=== PATIENT | male | born 1980 | race Two or more races ===

== ENCOUNTER 2020-04-01 18:43 | Inpatient (IN) | payer OTHER ==
[~2020-04-01] VITALS: Ht 170.2 cm; Wt 104.3 kg
--- NOTE | 2020-04-01 19:05 | NUR ---
ED Nurse Note: PT BROUGHT IN TO ED VIA WHEELCHAIR ASSISTANCE C/O 06/05 CONSTANT ACHING PAIN ON LEFT MCWILLIAMS INJURY THAT HAPPENED AT AROUND 1400 TODAY DURING WORK. PT STATES BEING HIT BY AN UNK METAL OBJECT FALLING ON HIS LEFT MCWILLIAMS. LEFT MCWILLIAMS APPEARS WITH AN ABRASION WITH EDEMA AND PRESENTS WITH HEMATOMA. BLEEDING IS CONTROLLED AT THIS TIME. PT REPORTS LAST TDAP 3 YRS AGO. AAOX4, NONAMBULATORY, VSS, NAD. ERPA AT BEDSIDE.
[2020-04-01] MEDS ORDERED: Ketorolac 30mg Inj IM ONE (19:15)
[2020-04-01] MEDS ORDERED: Tylenol #3 tab (300mg/30mg) ORAL ONE (19:15)
--- NOTE | 2020-04-01 19:15 | NUR ---
ED Nurse Note: cleaned wound site with chlorhexadine solution.
--- NOTE | 2020-04-01 19:15 | NUR ---
ED Nurse Note: XR AT BEDSIDE
--- NOTE | 2020-04-01 19:20 | NUR ---
ED Nurse Note: PT GIVEN PAIN MEDICATION
[2020-04-01 19:25] VITALS: BP 136/72
--- NOTE | 2020-04-01 19:30 | NUR ---
ED Nurse Note: US AT BEDSIDE
--- NOTE | 2020-04-01 20:06 | Emergency Room Report ---
History of Present Illness General Chief Complaint: Lower Extremity Injury Source: Patient (Ximena Rojas) Present Illness HPI 39-year-old male with no significant past medical history here for left lower extremity after a metal pole hit his leg at work. 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 Patient entire left lower extremity is very tight. Patient has good circulation, blood flow is within normal limits. Rates the pain 10 out of 10 without radiation. Patient started to blister at the site. Denies chest pain, shortness of, headache and dizziness. Complains of numbness in the left lower extremity however the foot is not numb according to the patient. Has not taken medication for symptom relief. Minor abrasions noted left side. Is up-to-date with tetanus shot. Denies fever chills. (Ximena Rojas) Allergies: Coded Allergies: No Known Allergies (Unverified , 04/01/20) COVID-19 Screening Contact w/high risk pt: No Recent Travel to affected area: No Experienced COVID-19 symptoms?: No COVID-19 Testing performed RECEIVING TEAM MEMBER: No (Ximena Rojas) Patient History Past Medical History: see triage record Past Surgical History: none Pertinent Family History: none Immunizations: UTD Reviewed Nursing Documentation: PMH: Agreed; PSxH: Agreed (Ximena Rojas) Nursing Documentation-PMH Past Medical History: No Stated History (Ximena Rojas) Review of Systems All Other Systems: negative except mentioned in HPI (Ximena Rojas) Physical Exam Vital Signs Date Time Temp Pulse Resp B/P (MAP) Pulse Ox O2 Delivery O2 Flow Rate FiO2 04/01/20 19:01 97.9 98 17 145/104 (118) 95 Room Air Sp02 EP Interpretation: reviewed, normal General Appearance: no apparent distress, alert, GCS 15, non-toxic Head: normocephalic, atraumatic Eyes: bilateral eye normal inspection, bilateral eye PERRL ENT: hearing grossly normal, normal pharynx, no angioedema, normal voice Neck: full range of motion, supple/symm/no masses Respiratory: chest non-tender, lungs clear, normal breath sounds, no respiratory distress, speaking full sentences Cardiovascular #1: regular rate, rhythm, no edema, no JVD, no murmur Cardiovascular #2: 2+ dorsalis pedis (R), 2+ dorsalis pedis (L) Gastrointestinal: normal inspection Rectal: deferred Genitourinary: no CVA tenderness Musculoskeletal: back normal, no calf tenderness, swelling - Left tib-fib with tightness and obvious hematoma frontal tib-fib Neurologic: alert, motor strength/tone normal, oriented x3, sensory intact, responsive, speech normal Psychiatric: judgement/insight normal, memory normal, mood/affect normal, no suicidal/homicidal ideation Skin: abrasion - left tib fib Lymphatic: no adenopathy (Ximena Rojas) Medical Decision Making PA Attestation All diagnoses and treatment plans were reviewed and discussed with my supervising physician Dr. Webster (Ximena Rojas) PA Attestation I participated in the care of this patient along with REJI Sood and agree with treatment plan Briefly, this is a 39-year-old male who was injured by a metal pipe falling at a construction site. He sustained an abrasion over the left tibia with surrounding swelling. X-ray did not show fracture though his compartments were tense and blistering was beginning to appear. His tetanus was updated. Labs were obtained showing a normal CK normal potassium normal renal function. He has good distal perfusion with palpable PT and DP pulses and range of motion is intact though he has worsening pain and swelling. CTA of the leg was obtained showing a hematoma but no active extravasation and confirm no fracture. Patient is feeling better after receiving pain medication though believe he needs monitoring for possible early compartment syndrome and frequent rechecks. Keeping leg elevated. Will admit to panel physician, Dr. Terrell Vega. (Marshall Webster MD) Diagnostic Impression: Primary Impression: Injury of lower extremity Additional Impression: Hematoma ER Course 39-year-old male with no significant past medical history here for left lower extremity after a metal pole hit his leg at work. 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 Patient entire left lower extremity is very tight. Patient has good circulation, blood flow is within normal limits. Rates the pain 10 out of 10 without radiation. Patient started to blister at the site. Denies chest pain, shortness of, headache and dizziness. Complains of numbness in the left lower extremity however the foot is not numb according to the patient. Has not taken medication for symptom relief. Minor abrasions noted left side. Is up-to-date with tetanus shot. Denies fever chills. Ddx considered but are not limited to : Cellulitis, DVT, superficial infection, abscess, hematoma, Vital signs: are WNL, pt. is afebrile H&PE are most consistent with: Left lower extremity hematoma ORDERS: CBC, CMP, PT and PTT and INR, UA, CK, CTA left lower extremity, x-ray left tib-fib, venous duplex ultrasound left lower extremity ED INTERVENTIONS: Toradol, Tylenol Motrin, morphine, Zofran Patient was admitted with diagnosis of hematoma history of lower extremity to under supervision of : Eleanor pt stable at time of admission (Ximena Rojas) Laboratory Tests Test 04/01/20 21:25 White Blood Count 9.5 K/UL (4.8-10.8) Red Blood Count 5.18 M/UL (4.70-6.10) Hemoglobin 15.3 G/DL (14.2-18.0) Hematocrit 45.2 % (42.0-52.0) Mean Corpuscular Volume 87 FL (80-99) Mean Corpuscular Hemoglobin 29.4 PG (27.0-31.0) Mean Corpuscular Hemoglobin Concent 33.7 G/DL (32.0-36.0) Red Cell Distribution Width 12.5 % (11.6-14.8) Platelet Count 211 K/UL (150-450) Mean Platelet Volume 8.7 FL (6.5-10.1) Neutrophils (%) (Auto) 64.5 % (45.0-75.0) Lymphocytes (%) (Auto) 27.5 % (20.0-45.0) Monocytes (%) (Auto) 6.1 % (1.0-10.0) Eosinophils (%) (Auto) 0.8 % (0.0-3.0) Basophils (%) (Auto) 1.2 % (0.0-2.0) Prothrombin Time 11.6 SEC (9.30-11.50) H Prothrombin Time INR 1.1 (0.9-1.1) Activated Partial Thromboplast Time 32 SEC (23-33) Sodium Level 139 MMOL/L (136-145) Potassium Level 3.8 MMOL/L (3.5-5.1) Chloride Level 104 MMOL/L (98-107) Carbon Dioxide Level 26 MMOL/L (21-32) Anion Gap 10 mmol/L (5-15) Blood Urea Nitrogen 14 mg/dL (7-18) Creatinine 0.9 MG/DL (0.55-1.30) Estimated Glomerular Filtration Rate > 60 mL/min (>60) Glucose Level 107 MG/DL (74-106) H Calcium Level 8.4 MG/DL (8.5-10.1) L Total Bilirubin 0.5 MG/DL (0.2-1.0) Aspartate Amino Transferase (AST) 34 U/L (15-37) Alanine Aminotransferase (ALT) 169 U/L (12-78) H Alkaline Phosphatase 125 U/L (46-116) H Total Creatine Kinase 144 U/L (26-308) Total Protein 7.3 G/DL (6.4-8.2) Albumin 4.2 G/DL (3.4-5.0) Globulin 3.1 g/dL Albumin/Globulin Ratio 1.4 (1.0-2.7) (Marshall Webster MD) Other X-Ray Diagnostic Results Other X-Ray Diagnostic Results : X-Ray ordered: Left tib fib # of Views/Limited Vs Complete: 3 View Indication: Pain EP Interpretation: Yes PA Xray: Interpretation reviewed, by supervising MD, and agrees with findings. Interpretation: no dislocation, no fractures, other - tightness and hematoma Impression: Other - hematoma Electronically Signed by: Ximena Gomes PA-C (Ximena Rojas) CT/MRI/US Diagnostic Results CT/MRI/US Diagnostic Results #1: Imaging Test Ordered: Venous duplex ultrasound left lower extremity Impression No DVT CT/MRI/US Diagnostic Results #2: Imaging Test Ordered: CTA left lower extremity Impression FINDINGS: VASCULATURE: Patent popliteal artery and runoff arteries. The distal aspect of the runoff arteries are not visualized as the scan outran the bolus. No dissection. No active bleeding. LOWER EXTREMITY: Bones/joints: No fracture or malalignment. Soft tissues: Hematoma along the anteromedial holguin measuring approximately 8.8 x 3.3 x 0.0 cm. Overlying skin irregularity. No active extravasation. IMPRESSION: 1. Hematoma along the anteromedial holguin without active extravasation. 2. No fracture. (Ximena Rojas) CT/MRI/US Diagnostic Results : Impression Final Report EXAM: CT Angiography of the Left Lower Extremity With Intravenous Contrast CLINICAL HISTORY: PAIN TECHNIQUE: Axial computed tomographic angiography images of the left lower extremity with intravenous contrast. CTDI is 68.9 mGy and DLP is 186 mGy-cm. One or more of the following dose reduction techniques were used: automated exposure control, adjustment of the mA and/or kV according to patient size, use of iterative reconstruction technique. 3D and MIP reconstructed images were created and reviewed. COMPARISON: No relevant prior studies available. FINDINGS: VASCULATURE: Patent popliteal artery and runoff arteries. The distal aspect of the runoff arteries are not visualized as the scan outran the bolus. No dissection. No active bleeding. LOWER EXTREMITY: Bones/joints: No fracture or malalignment. Soft tissues: Hematoma along the anteromedial holguin measuring approximately 8.8 x 3.3 x 0.0 cm. Overlying skin irregularity. No active extravasation. IMPRESSION: 1. Hematoma along the anteromedial holguin without active extravasation. 2. No fracture. Radiologist: Tyrell Lewis MD Electronically Signed: 04/01/20 22:47 Study ready at 22:44 and initial results transmitted at 22:47 (Marshall Webster MD) Last Vital Signs Date Time Temp Pulse Resp B/P (MAP) Pulse Ox O2 Delivery O2 Flow Rate FiO2 04/01/20 19:01 97.9 98 17 145/104 (118) 95 Room Air (Ximena Rojas) Disposition: PLACE IN OBSERVATION Condition: Stable Referrals: NOT CHOSEN IPA/,REFERRING (PCP) Ximena Rojas Apr 01, 2020 20:06 Marshall Webster MD Apr 01, 2020 22:49
[2020-04-01] MEDS ORDERED: Omnipaque 350 100ml vial INJ PRN (20:30)
[2020-04-01 21:00] VITALS: BP 139/87
--- NOTE | 2020-04-01 21:30 | NUR ---
ED Nurse Note: blood collected and sent to lab
--- NOTE | 2020-04-01 21:33 | NUR ---
ED Nurse Note: localized blisters noted around the wound on the left holguin. erpa notified and aware.
[2020-04-01 21:38] LABS: BASOPHILS % (AUTO) 1.2 % (0.0-2.0); EOSINOPHILS % (AUTO) 0.8 % (0.0-3.0); HEMATOCRIT 45.2 % (42.0-52.0); HEMOGLOBIN 15.3 G/DL (14.2-18.0); LYMPHOCYTES % (AUTO) 27.5 % (20.0-45.0); MEAN CORPUSCULAR VOLUME 87 FL (80-99); MONOCYTES % (AUTO) 6.1 % (1.0-10.0); NEUTROPHILS % (AUTO) 64.5 % (45.0-75.0); PLATELET COUNT 211 K/UL (150-450); RED BLOOD COUNT 5.18 M/UL (4.70-6.10); RED CELL DISTRIBUTION WIDTH 12.5 % (11.6-14.8); WHITE BLOOD COUNT 9.5 K/UL (4.8-10.8)
--- NOTE | 2020-04-01 21:40 | NUR ---
ED Nurse Note: per ERPA, continue to monitor wound and blister until patient goes to cta.
[2020-04-01 21:44] LABS: ANION GAP 10 mmol/L (5-15); BLOOD UREA NITROGEN 14 mg/dL (7-18); CALCIUM 8.4 MG/DL (8.5-10.1); CARBON DIOXIDE 26 MMOL/L (21-32); CHLORIDE 104 MMOL/L (98-107); CREATININE 0.9 MG/DL (0.55-1.30); POTASSIUM 3.8 MMOL/L (3.5-5.1); SODIUM 139 MMOL/L (136-145)
[2020-04-01 21:48] LABS: INR 1.1 (0.9-1.1)
[2020-04-01 21:50] LABS: ALANINE AMINOTRANSFERASE 169 U/L (12-78); ALBUMIN 4.2 G/DL (3.4-5.0); ALBUMIN/GLOBULIN RATIO 1.4 (1.0-2.7); ALKALINE PHOSPHATASE 125 U/L (46-116); ASPARTATE AMINO TRANSFERASE 34 U/L (15-37); BILIRUBIN,TOTAL 0.5 MG/DL (0.2-1.0); CREATINE KINASE 144 U/L (26-308)
[2020-04-01] MEDS ORDERED: Morphine Sulfate 2mg/ml Inj(IV/IM USE ONLY) IVP ONE (22:00)
--- NOTE | 2020-04-01 22:06 | NUR ---
ED Nurse Note: pt went for cta. pt signed consent and verbalized understanding of cta procedure
--- NOTE | 2020-04-01 22:23 | NUR ---
ED Nurse Note: PT BACK FROM CT
[2020-04-01 22:36] VITALS: BP 136/69
--- NOTE | 2020-04-01 22:40 | NUR ---
ED Nurse Note: PT LEFT FEET APPEARS COLD TO TOUCH AND NOTED BY ERPA AND ERMD. WILL CONTINUE TO MONITOR PATIENT. VSS, NAD.
--- NOTE | 2020-04-01 22:47 | Diagnostic Imaging Report ---
EXAM: CT Angiography of the Left Lower Extremity With Intravenous Contrast CLINICAL HISTORY: PAIN TECHNIQUE: Axial computed tomographic angiography images of the left lower extremity with intravenous contrast. CTDI is 68.9 mGy and DLP is 186 mGy- cm. One or more of the following dose reduction techniques were used: automated exposure control, adjustment of the mA and/or kV according to patient size, use of iterative reconstruction technique. 3D and MIP reconstructed images were created and reviewed. COMPARISON: No relevant prior studies available. FINDINGS: VASCULATURE: Patent popliteal artery and runoff arteries. The distal aspect of the runoff arteries are not visualized as the scan outran the bolus. No dissection. No active bleeding. LOWER EXTREMITY: Bones/joints: No fracture or malalignment. Soft tissues: Hematoma along the anteromedial holguin measuring approximately 8.8 x 3.3 x 0.0 cm. Overlying skin irregularity. No active extravasation. IMPRESSION: 1. Hematoma along the anteromedial holguin without active extravasation. 2. No fracture.
--- NOTE | 2020-04-01 23:59 | NUR ---
ED Nurse Note: gave report to Wayne SCHWARTZ.
[2020-04-02] VITALS (7 sets, daily range): BP systolic 115–152; BP diastolic 73–99
[2020-04-02] MEDS ORDERED: Morphine Sulfate 2mg/ml Inj(IV/IM USE ONLY) IVP ONE
--- NOTE | 2020-04-02 00:13 | NUR ---
ED Nurse Note: CEFAZOLIN 2GM NOT AVAILABLE IN [facility]. PER DR SOUZA VERBAL ORDER, CEFAZOLIN 1GM IN 50ML OF NS TO BE GIVEN. OVERRIDE DONE FOR CEFAZOLIN 1GM.
[2020-04-02] MEDS ORDERED: ceFAZolin 2gm/50ml Premix 50 ML IVPB SCH (00:15)
--- NOTE | 2020-04-02 00:22 | NUR ---
ED Nurse Note: CALLED PIPELINE FOR ANCEF 1GM IV VERIFICATION.
[2020-04-02] MEDS ORDERED: D5W IV SCH (00:30)
[2020-04-02] MEDS ORDERED: CEFAZOLIN SOD IV SCH (00:30)
--- NOTE | 2020-04-02 00:30 | NUR ---
ED Nurse Note: ANCEF 1GM MANUAL BARCODE INITIATED SCANNER WAS NOT ABLE TO SCAN. ANCEF 1GM MIXED IN 50ML D5 SOLUTION.
[2020-04-02 00:37] LABS: APPEARANCE,URINE CLEAR; BILIRUBIN, URINE NEGATIVE (NEGATIVE); COLOR,URINE PALE YELLOW; GLUCOSE, URINE (UA) NEGATIVE (NEGATIVE); KETONES,URINE NEGATIVE (NEGATIVE); LEUKOCYTE ESTERASE ,URINE NEGATIVE (NEGATIVE); NITRITE,URINE NEGATIVE (NEGATIVE); PH,URINE 6 (4.5-8.0); PROTEIN,URINE NEGATIVE (NEGATIVE); UROBILINOGEN,URINE NORMAL MG/DL (0.0-1.0)
--- NOTE | 2020-04-02 00:50 | NUR ---
TRANSFER TO FLOOR: Patient transferred to [facility] via [facility] in stable condition as ordered, per dr. Tejada. Report given to Wayne SCHWARTZ. Belongings sent with patient.
--- NOTE | 2020-04-02 00:55 | NUR ---
CHARGE NURSE NOTE: Pt is transferred from ED in stable condition, vitas stable.Report received from Jaden Odell RN ED. Room air. Pt is awake, alert and oriented. Left holguin injury noted, left leg elevated. Pt has circulation, sensation and movement of left leg. Pedal pulses present. Hand-off report given to EFREN Yepez. EFREN Yepez to complete admission process.
--- NOTE | 2020-04-02 01:11 | History and Physical ---
History of Present Illness General Reason for Hospitalization: Lower Extremity Injury Present Illness HPI A 39yo M with no known medical history reports for blunt trama to tibia. It occurred on 04/01/2020 onsite of job around noon. When a piece of metal weghing 20lbs fell 20ft onto tibia. Only able to bear weight but unable to ambulate. Taken to ED were a CT shows no fx but large hematoma. His initial CBC shows a hgb 15.3g/dl. Patient is able to move foot, and a has distal pulse. Allergies: Coded Allergies: No Known Allergies (Unverified , 04/01/20) COVID-19 Screening Contact w/high risk pt: No Recent Travel to affected area: No Experienced COVID-19 symptoms?: No Patient History Healthcare decision maker Resuscitation status Advanced Directive on File Review of Systems Constitutional: Reports: no symptoms Eye: Reports: no symptoms ENT: Reports: no symptoms Respiratory: Reports: no symptoms Cardiovascular: Reports: no symptoms Gastrointestinal: Reports: no symptoms Genitourinary: Reports: no symptoms Musculoskeletal: Reports: joint swelling Skin: Reports: no symptoms Psychiatric: Reports: no symptoms Neurological: Reports: no symptoms Endocrine: Reports: no symptoms Physical Exam General Appearance: moderate distress Lines, tubes and drains: peripheral HEENT: normocephalic, atraumatic Neck: non-tender, normal alignment, supple Respiratory/Chest: chest wall non-tender, lungs clear Cardiovascular/Chest: regular rhythm, tachycardia Abdomen: normal bowel sounds Extremities: normal range of motion, other - LLE anterior surface shows abrasion. Edematous. Foot cold but similar to other foot. Pulse noted distally. Skin Exam: normal pigmentation Last 24 Hour Vital Signs Date Time Temp Pulse Resp B/P (MAP) Pulse Ox O2 Delivery O2 Flow Rate FiO2 04/01/20 22:36 97.8 04/01/20 22:36 98.2 68 18 136/69 99 Room Air 04/01/20 21:00 97.8 81 19 139/87 99 Room Air 04/01/20 19:51 97.8 04/01/20 19:50 97.8 04/01/20 19:25 98.1 72 18 136/72 98 Room Air 04/01/20 19:01 97.9 98 17 145/104 (118) 95 Room Air Intake and Output 04/01/20 04/02/20 19:00 07:00 Intake Total 100 ml Balance 100 ml Intake Oral 100 ml Laboratory Tests Test 04/01/20 21:25 04/01/20 23:30 White Blood Count 9.5 K/UL (4.8-10.8) Red Blood Count 5.18 M/UL (4.70-6.10) Hemoglobin 15.3 G/DL (14.2-18.0) Hematocrit 45.2 % (42.0-52.0) Mean Corpuscular Volume 87 FL (80-99) Mean Corpuscular Hemoglobin 29.4 PG (27.0-31.0) Mean Corpuscular Hemoglobin Concent 33.7 G/DL (32.0-36.0) Red Cell Distribution Width 12.5 % (11.6-14.8) Platelet Count 211 K/UL (150-450) Mean Platelet Volume 8.7 FL (6.5-10.1) Neutrophils (%) (Auto) 64.5 % (45.0-75.0) Lymphocytes (%) (Auto) 27.5 % (20.0-45.0) Monocytes (%) (Auto) 6.1 % (1.0-10.0) Eosinophils (%) (Auto) 0.8 % (0.0-3.0) Basophils (%) (Auto) 1.2 % (0.0-2.0) Prothrombin Time 11.6 SEC (9.30-11.50) H Prothromb Time International Ratio 1.1 (0.9-1.1) Activated Partial Thromboplast Time 32 SEC (23-33) Sodium Level 139 MMOL/L (136-145) Potassium Level 3.8 MMOL/L (3.5-5.1) Chloride Level 104 MMOL/L (98-107) Carbon Dioxide Level 26 MMOL/L (21-32) Anion Gap 10 mmol/L (5-15) Blood Urea Nitrogen 14 mg/dL (7-18) Creatinine 0.9 MG/DL (0.55-1.30) Estimat Glomerular Filtration Rate > 60 mL/min (>60) Glucose Level 107 MG/DL (74-106) H Calcium Level 8.4 MG/DL (8.5-10.1) L Total Bilirubin 0.5 MG/DL (0.2-1.0) Aspartate Amino Transf (AST/SGOT) 34 U/L (15-37) Alanine Aminotransferase (ALT/SGPT) 169 U/L (12-78) H Alkaline Phosphatase 125 U/L (46-116) H Total Creatine Kinase 144 U/L (26-308) Total Protein 7.3 G/DL (6.4-8.2) Albumin 4.2 G/DL (3.4-5.0) Globulin 3.1 g/dL Albumin/Globulin Ratio 1.4 (1.0-2.7) Urine Color Pale yellow Urine Appearance Clear Urine pH 6 (4.5-8.0) Urine Specific [place] 1.015 (1.005-1.035) Urine Protein Negative (NEGATIVE) Urine Glucose (UA) Negative (NEGATIVE) Urine Ketones Negative (NEGATIVE) Urine Blood Negative (NEGATIVE) Urine Nitrite Negative (NEGATIVE) Urine Bilirubin Negative (NEGATIVE) Urine Urobilinogen Normal MG/DL (0.0-1.0) Urine Leukocyte Esterase Negative (NEGATIVE) Height (Feet): 6 Height (Inches): 5.00 Weight (Pounds): 230 Medications Current Medications Medications (Trade) Dose Ordered Sig/Carmen Route PRN Reason Start Time Stop Time Status Last Admin Dose Admin Cefazolin Sodium 50 ml @ 100 mls/hr Q8HR IVPB 04/02/20 00:15 04/09/20 00:14 Cefazolin Sodium 1000 mg/Dextrose 55 ml @ 110 mls/hr ONCE IV 04/02/20 00:30 04/02/20 02:00 04/02/20 00:32 Iohexol (Omnipaque 350 100ml) 100 ml NOW PRN INJ Radiology Procedure 04/01/20 20:30 04/03/20 20:16 Assessment/Plan Problem List: (1) Hematoma Assessment & Plan: ORDERS Consult: Surgery: Dr. Jerome Hold anticoagulation Hydromorphone 1/-1.5mg q6hrs prn prn Neurovascular monitoring of LLE foot ICD Codes: T14.8XXA - Other injury of unspecified body region, initial encounter SNOMED: 562589265 (2) Injury of lower extremity ICD Codes: S89.90XA - Unspecified injury of unspecified lower leg, initial encounter SNOMED: 320820049 Pavel Henning D.O. Apr 02, 2020 01:11
--- NOTE | 2020-04-02 01:40 | NUR ---
NURSES NOTES: Pt received from ER at 0045. Pt in bed, A/OX4, pain 5/10 in lower left extremity. No outward s/s of distress noted. Breathing is even and unlabored on RA. Left extremity is elevated. Orders to clean left holguin with NS, and cover with 4x4 gauze. IV R hand, 20 gauge, intact. Hep locked. Head to toe assessment completed. New orders processed. All due meds will be given. Bed at lowest level. Call light within reach. Pt will continue to be monitored.
[2020-04-02] MEDS ORDERED: HYDROmorphone 1mg/ml Carpuject IVP PRN ×2 (01:45)
--- NOTE | 2020-04-02 07:30 | NUR ---
NURSE NOTES: Received report from La RN, rounds made, pt awake , a/o4, breaths regular unlabored on RA c/o pain 3/10 Left lower leg at rest, will provide medication as ordered. dressing on Left holguin clean intact , patient able to wiggle toes, left holguin warm to touch. RT hand 20G locked , bed in low locked position call light with in reach , will continue to monitor
--- NOTE | 2020-04-02 07:46 | NUR ---
HAND OFF: Report given to EFREN Gordon. Pt stable.
--- NOTE | 2020-04-02 09:54 | Consultation ---
History of Present Illness General Date patient seen: Apr 02, 2020 Reason for Hospitalization: Lower Extremity Injury Present Illness HPI 39-year-old male with no significant past medical history here for left lower extremity after a metal pole hit his leg at work. 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 Obvious hematoma noted. Patient entire left lower extremity is very tight. Patient has good circulation, blood flow is within normal limits. Rates the pain 10 out of 10 without radiation. Patient started to blister at the site. Denies chest pain, shortness of, headache and dizziness. Complains of numbness in the left lower extremity however the foot is not numb according to the patient. Has not taken medication for symptom relief. Minor abrasions noted left side. Is up-to-date with tetanus shot. Denies fever chills. CT identified hematoma. Physical exam with tender left lower extremity and larger wound. Surgery called to evaluate and assist with care patient admitted patient evaluated chart reviewed Allergies: Coded Allergies: No Known Allergies (Unverified , 04/01/20) COVID-19 Screening Contact w/high risk pt: No Recent Travel to affected area: No Experienced COVID-19 symptoms?: No Patient History History Provided By: Patient, Medical Record, PMD Healthcare decision maker Resuscitation status Advanced Directive on File Past Medical/Surgical History Past Medical/Surgical History: (1) Hematoma (2) Injury of lower extremity Review of Systems Review of Symptoms General ROS: no weight loss or fever Psychological ROS: no depression or mood changes, no memory loss Ophthalmic ROS: no visual changes or eye irritation ENT ROS: no nasal congestion, hearing loss, dizziness Allergy and Immunology ROS: no allergic symptoms or urticaria Hematological and Lymphatic ROS: no swollen glands, unusual bleeding or bruising Endocrine ROS: no polyuria, polydipsia, weight changes, temperature intolerance Respiratory ROS: no cough, shortness of breath, or wheezing Cardiovascular ROS: no chest pain or dyspnea on exertion Gastrointestinal ROS: denies abdominal pain, bright red blood in stool. Musculoskeletal ROS: left leg pain Neurological ROS: no TIA or stroke symptoms Dermatological ROS: no new or changing skin lesions, rashes or pruritis Physical Exam Physical Exam General appearance: alert, cooperative, no distress, appears stated age Head: Normocephalic, without obvious abnormality, atraumatic Eyes: conjunctivae/corneas clear. PERRL, EOM's intact. Fundi benign Throat: Lips, mucosa, and tongue normal. Teeth and gums normal Neck: supple, symmetrical, trachea midline, no adenopathy, thyroid: not enlarged, symmetric, no tenderness/mass/nodules, no carotid bruit and no JVD Lungs: clear to auscultation bilaterally Heart: regular rate and rhythm, S1, S2 normal, no murmur, click, rub or gallop Abdomen: soft, non-tender. Bowel sounds normal. No masses, no organomegaly Extremities: extremities left leg pain, edema from leg to ankle. pulses wnl b/ l. tender on wound Pulses: 2+ and symmetric Skin: Skin color, texture, turgor normal. No rashes or lesions Neurologic: Grossly normal Last 24 Hour Vital Signs Date Time Temp Pulse Resp B/P (MAP) Pulse Ox O2 Delivery O2 Flow Rate FiO2 04/02/20 04:00 98.0 76 18 115/78 (90) 95 04/02/20 02:19 Room Air 04/02/20 00:50 97.8 66 18 137/73 99 Room Air 04/02/20 00:45 97.7 87 17 152/95 (114) 97 04/02/20 00:35 97.8 04/02/20 00:30 98.1 66 18 137/73 99 Room Air 04/01/20 22:36 97.8 04/01/20 22:36 98.2 68 18 136/69 99 Room Air 04/01/20 21:00 97.8 81 19 139/87 99 Room Air 04/01/20 19:51 97.8 04/01/20 19:50 97.8 04/01/20 19:25 98.1 72 18 136/72 98 Room Air 04/01/20 19:01 97.9 98 17 145/104 (118) 95 Room Air Intake and Output 04/01/20 04/02/20 19:00 07:00 Intake Total 600 ml Output Total 350 ml Balance 250 ml Intake Oral 600 ml Output Urine Total 350 ml # Voids 1 Laboratory Tests Test 04/01/20 21:25 04/01/20 23:30 White Blood Count 9.5 K/UL (4.8-10.8) Red Blood Count 5.18 M/UL (4.70-6.10) Hemoglobin 15.3 G/DL (14.2-18.0) Hematocrit 45.2 % (42.0-52.0) Mean Corpuscular Volume 87 FL (80-99) Mean Corpuscular Hemoglobin 29.4 PG (27.0-31.0) Mean Corpuscular Hemoglobin Concent 33.7 G/DL (32.0-36.0) Red Cell Distribution Width 12.5 % (11.6-14.8) Platelet Count 211 K/UL (150-450) Mean Platelet Volume 8.7 FL (6.5-10.1) Neutrophils (%) (Auto) 64.5 % (45.0-75.0) Lymphocytes (%) (Auto) 27.5 % (20.0-45.0) Monocytes (%) (Auto) 6.1 % (1.0-10.0) Eosinophils (%) (Auto) 0.8 % (0.0-3.0) Basophils (%) (Auto) 1.2 % (0.0-2.0) Prothrombin Time 11.6 SEC (9.30-11.50) H Prothromb Time International Ratio 1.1 (0.9-1.1) Activated Partial Thromboplast Time 32 SEC (23-33) Sodium Level 139 MMOL/L (136-145) Potassium Level 3.8 MMOL/L (3.5-5.1) Chloride Level 104 MMOL/L (98-107) Carbon Dioxide Level 26 MMOL/L (21-32) Anion Gap 10 mmol/L (5-15) Blood Urea Nitrogen 14 mg/dL (7-18) Creatinine 0.9 MG/DL (0.55-1.30) Estimat Glomerular Filtration Rate > 60 mL/min (>60) Glucose Level 107 MG/DL (74-106) H Calcium Level 8.4 MG/DL (8.5-10.1) L Total Bilirubin 0.5 MG/DL (0.2-1.0) Aspartate Amino Transf (AST/SGOT) 34 U/L (15-37) Alanine Aminotransferase (ALT/SGPT) 169 U/L (12-78) H Alkaline Phosphatase 125 U/L (46-116) H Total Creatine Kinase 144 U/L (26-308) Total Protein 7.3 G/DL (6.4-8.2) Albumin 4.2 G/DL (3.4-5.0) Globulin 3.1 g/dL Albumin/Globulin Ratio 1.4 (1.0-2.7) Urine Color Pale yellow Urine Appearance Clear Urine pH 6 (4.5-8.0) Urine Specific [place] 1.015 (1.005-1.035) Urine Protein Negative (NEGATIVE) Urine Glucose (UA) Negative (NEGATIVE) Urine Ketones Negative (NEGATIVE) Urine Blood Negative (NEGATIVE) Urine Nitrite Negative (NEGATIVE) Urine Bilirubin Negative (NEGATIVE) Urine Urobilinogen Normal MG/DL (0.0-1.0) Urine Leukocyte Esterase Negative (NEGATIVE) Height (Feet): 5 Height (Inches): 7.00 Weight (Pounds): 230 Medications Current Medications Medications (Trade) Dose Ordered Sig/Carmen Route PRN Reason Start Time Stop Time Status Last Admin Dose Admin Acetaminophen (Tylenol) 650 mg Q4H PRN ORAL Mild pain (1-3) 04/02/20 01:45 05/02/20 01:44 Acetaminophen (Tylenol) 650 mg Q4H PRN ORAL Temp >100.5 04/02/20 01:45 05/02/20 01:44 Hydromorphone HCl (Dilaudid) 1 mg Q4H PRN IVP Moderate Pain (4-6) 04/02/20 01:45 04/09/20 01:44 04/02/20 04:32 Hydromorphone HCl (Dilaudid) 1.5 mg Q4H PRN IVP Severe pain (7-10) 04/02/20 01:45 04/09/20 01:44 04/02/20 08:57 Iohexol (Omnipaque 350 100ml) 100 ml NOW PRN INJ Radiology Procedure 04/01/20 20:30 04/03/20 20:16 Ondansetron HCl (Zofran) 4 mg Q6H PRN IVP Nausea & Vomiting 04/02/20 01:45 05/02/20 01:44 Assessment/Plan Problem List: (1) Hematoma Assessment & Plan: Patent popliteal artery and runoff arteries. The distal aspect of the runoff arteries are not visualized as the scan outran the bolus. No dissection. No active bleeding. LOWER EXTREMITY: Bones/joints: No fracture or malalignment. Soft tissues: Hematoma along the anteromedial holguin measuring approximately 8.8 x 3.3 x 0.0 cm. Overlying skin irregularity. No active extravasation. IMPRESSION: 1. Hematoma along the anteromedial holguin without active extravasation. 2. No fracture. ICD Codes: T14.8XXA - Other injury of unspecified body region, initial encounter SNOMED: 485957768 (2) Injury of lower extremity Assessment & Plan: 39-year-old male with work injury to the left lower extremity pole hit to midshaft tibia. Patient is developed a hematoma large bruise and edema of the left lower extremity. He is got good pulses good range of motion but does have edema and discomfort. States mild pain with ambulation. Labs noted CT reviewed. There are concerns for potential compartment syndrome but the compartments seem fairly soft though he does have edema of the leg. Injury likely etiology of edema hematoma not large not drainable. No active bleeding. Does have pain and discomfort. Recommend pain control diet as tolerated left lower extremity elevated PT OT for evaluation of gait mobility to ensure safe. Upon approval will plan for discharge. Recommend staying in the hospital currently until able to ambulate and edema begins to subside. Does need pain control given injury. Fortunately no fracture. Thank you will follow with recommendations ICD Codes: S89.90XA - Unspecified injury of unspecified lower leg, initial encounter SNOMED: 106899057 Juni Schneider Apr 02, 2020 09:54
--- NOTE | 2020-04-02 10:19 | NUR ---
CASE MANAGEMENT: INITIAL REVIEW 39 YR OLD MALE FROM HOME CC: LOWER EXTREMITY INJURY SI:INJURY OF LOWER EXTREMITY 97.8 98 17 145/104 96% ON RA BG 107 CA+8.4 ALKP 169 TCK 125 PT 11.6 IS:TYLENOL #3 PO X1 TORADOL IM X1 IV MORPHINE SULFATE X1 IV ZOFRAN X1 CTA L Lower Extrem wo/w Cont-Hematoma along the anteromedial holguin without active extravasation. No fracture. \: [facility]E [facility]G UN[facility] DCP: HOME WHEN STABLE PLAN: VENOUS DUPLEX-PENDING CASE MANAGEMENT: REVIEW 04/02/20 SI:INJURY OF LOWER EXTREMITY 98.3 79 19 137/99 98% ON RA IS:IV DILAUDID Q4HR/PRN \: 3E MED SURG UNIT DCP: HOME WHEN STABLE PLAN: CONTROL PAIN ABLE TO BEAR WEIGHT BUT NOT ABLE TO AMBULATE
--- NOTE | 2020-04-02 12:40 | General Progress Note ---
Assessment/Plan Problem List: (1) Injury of lower extremity ICD Codes: S89.90XA - Unspecified injury of unspecified lower leg, initial encounter SNOMED: 952591230 (2) Hematoma ICD Codes: T14.8XXA - Other injury of unspecified body region, initial encounter SNOMED: 440320062 Assessment/Plan: #Left lower extremity injury #Hematoma with edema -Surgery evaluated -No compartment syndrome at this time -Pain controlled -PT evaluation -Will monitor hematoma and edema overnight. I spent 30 min on this pateint with 15 min face to face. Discussed with surgery attending. Discussed plan with RN Subjective Constitutional: Reports: no symptoms HEENT: Reports: no symptoms Cardiovascular: Reports: no symptoms Respiratory: Reports: no symptoms Gastrointestinal/Abdominal: Reports: no symptoms Genitourinary: Reports: no symptoms Neurologic/Psychiatric: Reports: no symptoms Endocrine: Reports: no symptoms Hematologic/Lymphatic: Reports: no symptoms Allergies: Coded Allergies: No Known Allergies (Unverified , 04/01/20) All Systems: reviewed and negative except above Subjective Has left leg pain but it is improving with medications Objective Last 24 Hour Vital Signs Date Time Temp Pulse Resp B/P (MAP) Pulse Ox O2 Delivery O2 Flow Rate FiO2 04/02/20 12:00 98.5 83 19 135/86 (102) 98 04/02/20 09:00 Room Air 04/02/20 08:00 98.3 79 19 137/99 (112) 98 04/02/20 04:00 98.0 76 18 115/78 (90) 95 04/02/20 02:19 Room Air 04/02/20 00:50 97.8 66 18 137/73 99 Room Air 04/02/20 00:45 97.7 87 17 152/95 (114) 97 04/02/20 00:35 97.8 04/02/20 00:30 98.1 66 18 137/73 99 Room Air 04/01/20 22:36 97.8 04/01/20 22:36 98.2 68 18 136/69 99 Room Air 04/01/20 21:00 97.8 81 19 139/87 99 Room Air 04/01/20 19:51 97.8 04/01/20 19:50 97.8 04/01/20 19:25 98.1 72 18 136/72 98 Room Air 04/01/20 19:01 97.9 98 17 145/104 (118) 95 Room Air Intake and Output 04/01/20 04/02/20 19:00 07:00 Intake Total 600 ml Output Total 350 ml Balance 250 ml Intake Oral 600 ml Output Urine Total 350 ml # Voids 1 Laboratory Tests 04/01/20 21:25: White Blood Count 9.5, Red Blood Count 5.18, Hemoglobin 15.3, Hematocrit 45.2, Mean Corpuscular Volume 87, Mean Corpuscular Hemoglobin 29.4, Mean Corpuscular Hemoglobin Concent 33.7, Red Cell Distribution Width 12.5, Platelet Count 211, Mean Platelet Volume 8.7, Neutrophils (%) (Auto) 64.5, Lymphocytes (%) (Auto) 27.5, Monocytes (%) (Auto) 6.1, Eosinophils (%) (Auto) 0.8, Basophils (%) (Auto ) 1.2, Prothrombin Time 11.6H, Prothromb Time International Ratio 1.1, Activated Partial Thromboplast Time 32, Sodium Level 139, Potassium Level 3.8, Chloride Level 104, Carbon Dioxide Level 26, Anion Gap 10, Blood Urea Nitrogen 14, Creatinine 0.9, Estimat Glomerular Filtration Rate > 60, Glucose Level 107H , Calcium Level 8.4L, Total Bilirubin 0.5, Aspartate Amino Transf (AST/SGOT) 34 , Alanine Aminotransferase (ALT/SGPT) 169H, Alkaline Phosphatase 125H, Total Creatine Kinase 144, Total Protein 7.3, Albumin 4.2, Globulin 3.1, Albumin/ Globulin Ratio 1.4 04/01/20 23:30: Urine Color Pale yellow, Urine Appearance Clear, Urine pH 6, Urine Specific [place] 1.015, Urine Protein Negative, Urine Glucose (UA) Negative, Urine Ketones Negative, Urine Blood Negative, Urine Nitrite Negative, Urine Bilirubin Negative, Urine Urobilinogen Normal, Urine Leukocyte Esterase Negative Height (Feet): 5 Height (Inches): 7.00 Weight (Pounds): 230 General Appearance: no apparent distress, alert EENT: PERRL/EOMI Neck: normal alignment, supple Cardiovascular: normal peripheral pulses, normal rate, regular rhythm, no gallop/murmur, no JVD Respiratory/Chest: lungs clear, normal breath sounds, no respiratory distress, no accessory muscle use Abdomen: normal bowel sounds, non tender, soft Extremities: normal range of motion, no calf tenderness - large hematoma on left holguin, normal capillary refill Edema: no edema noted Leg (L) Edema: non-pitting Neurologic: mat machine tender II-XII grossly normal, no motor/sensory deficits, alert, oriented x 3, responsive, normal mood/affect Skin: normal pigmentation, warm/dry Narayan Candelaria M.D. Apr 02, 2020 12:40
[2020-04-02] MEDS ORDERED: HYDROcodone/Acetamin 5/325 tab ORAL PRN (12:45)
--- NOTE | 2020-04-02 14:24 | NUR ---
*-* NO INSURANCE INFORMATION IN THE BAR UNABLE TO SEND CLINICALS OR REVIEWS *-*
--- NOTE | 2020-04-02 14:31 | Diagnostic Imaging Report ---
Indication: Trauma, pain Technique: 2 views of the left tibia and fibula Comparison: none Findings: No acute fractures. No dislocations. The joint spaces are preserved. No radiopaque foreign body Impression: Negative
--- NOTE | 2020-04-02 14:34 | Diagnostic Imaging Report ---
Indication: Legs pain, blunt trauma to the tibia, hematoma on recent CT scan Technique: Grayscale and duplex images of the left lower extremity veins Comparison: None Findings: Bilaterally, grayscale and duplex images demonstrate no evidence of intraluminal thrombus. Normal phasic Doppler waveforms, demonstrating normal augmentation response and no evidence of valvular insufficiency. Greater saphenous vein(s) and tibial veins are patent. Normal compressibility. Note that the anterior tibial vein is not visualized, may be extrinsically compressed by the anterior soft tissue contusion demonstrated on recent CT scan Impression: Negative for evidence of lower extremity deep venous thrombosis on the left
--- NOTE | 2020-04-02 19:58 | NUR ---
HAND-OFF: Report given to Shamika SCHWARTZ.
--- NOTE | 2020-04-02 20:15 | NUR ---
NURSES NOTE: Received pt in bed, A/OX4, states he has pain 7/10 in L holguin. PRN pain meds will be given according to eMAR. No outward s/s of distress noted. Breathing pattern is even and unlabored on RA. Pt capable of wiggling L and R foot toes, aware of tactile stimulus to bottom and top of L foot, L leg is cool to touch. Pedal pulses present- bilateral. Evident swelling from L foot to Lower thigh. Pt will continue to be monitored for circulation abilities. Bed at lowest level, call light within reach.
[2020-04-02] MEDS: HYDROcodone/Acetamin 10/325 tab ORAL PRN (20:31)
[2020-04-03] VITALS: BP 105/68
[2020-04-03 04:00] VITALS: BP 110/60
[2020-04-03] MEDS: HYDROcodone/Acetamin 10/325 tab ORAL PRN (06:07)
--- NOTE | 2020-04-03 07:48 | NUR ---
HAND OFF: Report given to EFREN Bolaños. Pt in stable condition.
[2020-04-03 08:00] VITALS: BP 133/86
[2020-04-03 09:45] LABS: BASOPHILS % (AUTO) 0.9 % (0.0-2.0); EOSINOPHILS % (AUTO) 1.4 % (0.0-3.0); HEMATOCRIT 41.9 % (42.0-52.0); HEMOGLOBIN 14.2 G/DL (14.2-18.0); LYMPHOCYTES % (AUTO) 30.6 % (20.0-45.0); MEAN CORPUSCULAR VOLUME 88 FL (80-99); MONOCYTES % (AUTO) 7.9 % (1.0-10.0); NEUTROPHILS % (AUTO) 59.2 % (45.0-75.0); PLATELET COUNT 173 K/UL (150-450); RED BLOOD COUNT 4.75 M/UL (4.70-6.10); RED CELL DISTRIBUTION WIDTH 11.8 % (11.6-14.8); WHITE BLOOD COUNT 5.3 K/UL (4.8-10.8)
[2020-04-03 09:51] LABS: ANION GAP 11 mmol/L (5-15); BLOOD UREA NITROGEN 15 mg/dL (7-18); CALCIUM 8.6 MG/DL (8.5-10.1); CARBON DIOXIDE 26 MMOL/L (21-32); CHLORIDE 105 MMOL/L (98-107); CREATININE 0.9 MG/DL (0.55-1.30); POTASSIUM 3.8 MMOL/L (3.5-5.1); SODIUM 142 MMOL/L (136-145)
[2020-04-03 12:00] VITALS: BP 125/76
[2020-04-03] MEDS ORDERED: HYDROCODON-ACE1 EA15 ORAL (12:58)
--- NOTE | 2020-04-03 13:00 | Discharge Instructions ---
Discharge Instructions Discharge Instructions Diet: 2 GM sodium (low sodium) Resume Normal Activity?: No Activity: light activity, other For Surgical Patients Dressing Care: keep dry and clean Elevate: left leg with pillow May shower: Yes Contact your physician for: bleeding, pain, tenderness, redness, swelling For Congestive Heart Failure Reminder Report to your physician any weight gain of 5 pounds or more in one week. Narayan Candelaria M.D. Apr 03, 2020 13:00
--- NOTE | 2020-04-03 14:05 | NUR ---
P.T Note: P.T evaluation completed and tx initiated. Please refer to P.T evaluation for current functional status.
--- NOTE | 2020-04-03 14:20 | Surgery Progress Note ---
Surgery Progress Note Subjective Symptoms: improved, tolerating diet, voiding well, pain decreased Objective Last 24 Hour Vital Signs Date Time Temp Pulse Resp B/P (MAP) Pulse Ox O2 Delivery O2 Flow Rate FiO2 04/03/20 12:00 98.3 72 21 125/76 (92) 97 04/03/20 09:00 Room Air 04/03/20 08:00 98.1 75 20 133/86 (102) 97 04/03/20 04:00 98.9 102 17 110/60 (77) 96 04/03/20 00:00 97.8 74 17 105/68 (80) 96 04/02/20 21:00 Room Air 04/02/20 20:00 97.9 71 18 126/80 (95) 97 04/02/20 16:00 99.0 78 19 132/79 (96) 99 I&O Intake and Output 04/02/20 04/03/20 19:00 07:00 Intake Total 1600 ml 480 ml Balance 1600 ml 480 ml Intake Oral 1600 ml 480 ml # Voids 4 1 Dressing: dry Wound: clean Cardiovascular: RSR Respiratory: clear Abdomen: soft, non-tender, present bowel sounds Extremities: edema - improved, tenderness - improved, no cyanosis, pulses Laboratory Tests Test 04/03/20 09:15 White Blood Count 5.3 K/UL (4.8-10.8) Red Blood Count 4.75 M/UL (4.70-6.10) Hemoglobin 14.2 G/DL (14.2-18.0) Hematocrit 41.9 % (42.0-52.0) L Mean Corpuscular Volume 88 FL (80-99) Mean Corpuscular Hemoglobin 29.9 PG (27.0-31.0) Mean Corpuscular Hemoglobin Concent 33.9 G/DL (32.0-36.0) Red Cell Distribution Width 11.8 % (11.6-14.8) Platelet Count 173 K/UL (150-450) Mean Platelet Volume 8.2 FL (6.5-10.1) Neutrophils (%) (Auto) 59.2 % (45.0-75.0) Lymphocytes (%) (Auto) 30.6 % (20.0-45.0) Monocytes (%) (Auto) 7.9 % (1.0-10.0) Eosinophils (%) (Auto) 1.4 % (0.0-3.0) Basophils (%) (Auto) 0.9 % (0.0-2.0) Sodium Level 142 MMOL/L (136-145) Potassium Level 3.8 MMOL/L (3.5-5.1) Chloride Level 105 MMOL/L (98-107) Carbon Dioxide Level 26 MMOL/L (21-32) Anion Gap 11 mmol/L (5-15) Blood Urea Nitrogen 15 mg/dL (7-18) Creatinine 0.9 MG/DL (0.55-1.30) Estimat Glomerular Filtration Rate > 60 mL/min (>60) Glucose Level 119 MG/DL (74-106) H Calcium Level 8.6 MG/DL (8.5-10.1) Plan Problems: (1) Hematoma Assessment & Plan: Patent popliteal artery and runoff arteries. The distal aspect of the runoff arteries are not visualized as the scan outran the bolus. No dissection. No active bleeding. LOWER EXTREMITY: Bones/joints: No fracture or malalignment. Soft tissues: Hematoma along the anteromedial holguin measuring approximately 8.8 x 3.3 x 0.0 cm. Overlying skin irregularity. No active extravasation. IMPRESSION: 1. Hematoma along the anteromedial holguin without active extravasation. 2. No fracture. (2) Injury of lower extremity Assessment & Plan: 39-year-old male with work injury to the left lower extremity pole hit to midshaft tibia. Patient is developed a hematoma large bruise and edema of the left lower extremity. He is got good pulses good range of motion but does have edema and discomfort. States mild pain with ambulation. Labs noted CT reviewed. There are concerns for potential compartment syndrome but the compartments seem fairly soft though he does have edema of the leg. Injury likely etiology of edema hematoma not large not drainable. No active bleeding. Does have pain and discomfort. Recommend pain control diet as tolerated left lower extremity elevated PT OT for evaluation of gait mobility to ensure safe. Upon approval will plan for discharge. Recommend staying in the hospital currently until able to ambulate and edema begins to subside. Does need pain control given injury. Fortunately no fracture. Thank you will follow with recommendations exam improved edema improved wound stable d/c plan today instructions given to patient in detail at bedside office follow up given thank you Juni Schneider Apr 03, 2020 14:20
--- NOTE | 2020-04-03 15:10 | Discharge Summary ---
Discharge Summary Hospital Course Date of Admission Apr 01, 2020 at 23:00 Date of Discharge 04/03/2020 Admitting Diagnosis contusion, hematoma,compartment syndrome Reason for Hospitalization: r/o campartment syndrome HPI A 39yo M with no known medical history reports for blunt trama to tibia. It occurred on 04/01/2020 onsite of job around noon. When a piece of metal weghing 20lbs fell 20ft onto tibia. Only able to bear weight but unable to ambulate. Taken to ED were a CT shows no fx but large hematoma. His initial CBC shows a hgb 15.3g/dl. Patient is able to move foot, and a has distal pulse. Consultations General Surgery Dr. Schneider Hospital Course Patient was admitted to med surg unit and was monitored for compartment syndrome by surgery. Pt did have swelling that eventually subsided over the two days. Patient's pain was controlled by PO norco 5/325. He worked with PT and demonstrated how to use crutches. ED precautions given for signs of compartment syndrome. He will be out of work and on light duty for two weeks. I spent 31 min on this patient with 15 min face to face. Discussed with surgery attending. 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 Medications New Medications: Hydrocodone/Acetaminophen 5-325* (Hydrocodone/Acetaminophen 5-325*) 1 Each Tablet 1 TAB ORAL Q4H PRN for 7 Days, #12 TAB Discharge Condition Upon Discharge: improving Discharge Vital Signs Last Vital Signs Date Time Temp Pulse Resp B/P (MAP) Pulse Ox O2 Delivery O2 Flow Rate FiO2 04/03/20 12:00 98.3 72 21 125/76 (92) 97 04/03/20 09:00 Room Air Discharge Disposition Patient was discharged to [facility] from P.T services Discharge Diagnoses: (1) Injury of lower extremity (2) Hematoma Discharge Instructions Discharge Instructions Activity: light activity, other For Surgical Patients Dressing Care: keep dry and clean Elevate: left leg with pillow May shower: Yes Contact your physician for: bleeding, pain, tenderness, redness, swelling Narayan Candelaria M.D. Apr 03, 2020 15:10
[2020-04-03 16:00] VITALS: BP 130/70
[2020-04-03] MEDS ORDERED: COLACE100 MG ORAL (17:49)
[2020-04-03] MEDS ORDERED: TRAMADOL HCL100 M2 ORAL (17:49)
--- NOTE | 2020-04-03 18:40 | NUR ---
NURSE NOTES: Pt discharged , picked up by family in stable condition
--- NOTE | 2020-04-08 11:18 | NUR ---
*-* INSURANCE *-* ALL CLINICALS HAVE BEEN FAXED TO: [employer] F: [phone] Jaya Holguin [phone] CLAIM#[id number]
== END 2020-04-03 18:40 | disposition home or self-care (01) | DRG 605 ==
LOC: EMR 19:00 → EDBEDREQ 22:55 → 3E 23:00 → EDBEDREQ 23:27
DX: S80.12XA Contusion of left lower leg, initial encounter (principal); W20.8XXA Other cause of strike by thrown, projected or falling object, initial encounter; Y92.69 Other specified industrial and construction area as the place of occurrence of the external cause; Y99.0 Civilian activity done for income or pay
CPT/HCPCS: 36415; 80048; 80053; 81003; 82550; 85025; 85610; 85730; 93971; 96372; 96374; 96375; 96376; 99285; J2405